=== PATIENT | male | born 1950 | race American Indian/Alaskan Native ===

== ENCOUNTER 2018-06-09 09:57 | Outpatient (CLI) | payer MEDICARE | END 2018-06-09 09:58 | disposition home or self-care (01) | LOC: C.USIC 09:58 | DX: N18.3 Chronic kidney disease, stage 3 (moderate) (principal); N18.4 Chronic kidney disease, stage 4 (severe); Z21 Asymptomatic human immunodeficiency virus [HIV] infection status ==

== ENCOUNTER 2018-07-04 07:47 | Outpatient (CLI) | payer MEDICARE | END 2018-07-04 07:48 | disposition home or self-care (01) | LOC: C.LAB 07:47 | DX: B18.1 Chronic viral hepatitis B without delta-agent (principal); K57.30 Diverticulosis of large intestine without perforation or abscess without bleeding ==